=== PATIENT | female | born 1965 | race American Indian/Alaskan Native ===

== ENCOUNTER 2016-08-29 08:52 | Day surgery (SDC) | payer BC, OTHER ==
[2016-08-29] MEDS ORDERED: ECOTRIN PO ONE (09:12)
[2016-08-29 09:25] LABS: Basophils % (Auto) 0.5 % (0.0-1.8); Eosinophils % (Auto) 1.1 % (0.0-4.3); Hematocrit 36.1 % (30.3-42.9); Mean Corpuscular HGB Conc 33 % (30-34); Mean Corpuscular Hemoglobin 27 pg (28-32); Mean Corpuscular Volume 82 fl (79-97); Platelet Count 238 K/mm3 (140-440); Red Cell Distribution Width 14.8 % (13.2-15.2); White Blood Count 5.6 K/mm3 (4.5-11.0)
[2016-08-29 09:35] LABS: INR 0.98 (0.87-1.13)
[2016-08-29] MEDS ORDERED: NACL 0.9% 500 ML 500 ML IV SCH (10:00)
[2016-08-29 10:08] LABS: Anion Gap 11 mmol/L; BUN/Creatinine Ratio 11.66; Blood Urea Nitrogen 7 mg/dL (7-17); Calcium 9.5 mg/dL (8.4-10.2); Carbon Dioxide 31 mmol/L (22-30); Chloride 99.4 mmol/L (98-107); Glucose 94 mg/dL (65-100); Potassium 3.8 mmol/L (3.6-5.0); Sodium 138 mmol/L (137-145)
[2016-08-29] MEDS ORDERED: HEPARIN 10,000 UNITS/10 ML ONE (11:47)
[2016-08-29] MEDS ORDERED: HEPARIN/NS 5000 UNIT/500ML(CATH LAB) 1,000 ML IR ONE (11:47)
[2016-08-29] MEDS ORDERED: CALAN ONE (11:48)
[2016-08-29] MEDS ORDERED: NITROGLYCERIN SYRINGE 3 ML ONE (11:48)
[2016-08-29] MEDS ORDERED: XYLOCAINE 2% INFILTRATI ONE (11:48)
[2016-08-29] MEDS ORDERED: VERSED ONE (11:49)
[2016-08-29] MEDS: SUBLIMAZE ONE ×2 (12:15→12:20)
[2016-08-29] MEDS ORDERED: ULTRAM PO PRN (12:40)
--- NOTE | 2016-08-29 12:41 | Short Stay Summary ---
Short Stay Documentation Date of service: 08/29/16 - History H&P: obtained from office - Allergies and Medications Current Medications: Allergies montelukast sodium [From Singulair] Allergy (Verified 08/29/16 09:38) Itching morphine Allergy (Verified 08/29/16 09:38) Itching Penicillins Allergy (Verified 08/29/16 09:38) Rash Home Medications Medication Instructions Recorded Confirmed Last Taken Type Budesonide/Formoterol Fumarate 2 puff INHALATION BID 08/29/16 08/29/16 08/28/16 History [Symbicort 160-4.5 Mcg Inhaler] Dicyclomine HCl [Dicyclomine HCl] 20 mg PO QID 08/29/16 08/29/16 08/28/16 History Esomeprazole Magnesium 40 mg PO DAILY 08/29/16 08/29/16 08/28/16 History [Esomeprazole Magnesium] Hydrochlorothiazide 25 mg PO DAILY 08/29/16 08/29/16 08/28/16 History [Hydrochlorothiazide] 25mg Active Medications Sodium Chloride (Nacl 0.9% 500 Ml) 500 mls @ 50 mls/hr IV DIRECT RAO Stop: 08/29/16 19:59 Last Admin: 08/29/16 09:37 Dose: 50 mls/hr - Brief post op/procedure progress note Date of procedure: 08/29/16 Pre-op diagnosis: chest pain, shortness of breath Procedure: left heart cath - Hospital course Hospital course: Please see dictated cath report. - Disposition Condition at discharge: Stable Disposition: DISCHARGED TO HOME OR SELFCARE - Discharge Diagnoses (1) Chest pain Status: Acute Qualifiers: Chest pain type: C (2) Dyspnea Status: Acute Qualifiers: Dyspnea type: D (3) Hypertension Status: Chronic Qualifiers: Hypertension type: H (4) GERD (gastroesophageal reflux disease) Status: Chronic Qualifiers: Esophagitis presence: E Short Stay Discharge Plan Activity: advance as tolerated Weight Bearing Status: Weight Bear as Tolerated Diet: low fat, low cholesterol, low salt Wound: keep clean and dry Follow up with: MARCIE FUNES MD [Primary Care Provider] - 7 Days Forms: [facility] PCI D/C Instructions, Work/School Excuse Out Patient
--- NOTE | 2016-08-29 13:02 | Cardiac Catherization Report ---
LEFT HEART CATHETERIZATION CLINICAL INFORMATION: A 51-year-old female with obesity, has recurrent shortness of breath or chest pain intermittently despite negative cardiac workup, here for a left heart catheterization. Left heart catheterization performed via the right radial artery, sterile technique, local anesthesia, 5-Azerbaijani radial sheath inserted. Left system engaged with JL3.5 catheter. FINDINGS: Left main is a large caliber vessel, patent, bifurcates into large LAD, is patent from proximally and distally. Diagonal 1 is a medium caliber vessel, it is patent. Circumflex and AV groove is a large caliber vessel, it is patent. OM1 and OM2 are hhvyi-ht-kxyxjy caliber vessels that are patent. RCA engaged with JR4 catheter, is a medium caliber vessel that is patent from proximally and distally, bifurcates into small PDA and PLV that is patent. LV gram done in KHMER and HYDE view shows normal LV function, LVEDP of 13 mmHg, LV is 130/13, aortic is 127/70. No gradient across the aortic valve on pullback. 5-Azerbaijani catheters were taken over a guidewire. 5-Azerbaijani radial sheath was discontinued. Radial dressing applied. No hematoma. No bleeding. SUMMARY: Patent coronaries, normal LV function, noncardiac chest pain. JOB# [id number] BISI/ROJELIO
[2016-08-29 14:31] VITALS: BP 115/74
== END 2016-08-29 14:50 | disposition home or self-care (01) ==
LOC: OPU 08:52
PROVIDERS: ATTEND Internal Medicine
DX: R07.9 Chest pain, unspecified (principal); J45.909 Unspecified asthma, uncomplicated; E66.9 Obesity, unspecified
CPT/HCPCS: 36415; 80048; 85025; 85610; 85730; 93005; 93010; 93458; C1894; J1644; J2250; J3010; J7040; Q9967